=== PATIENT | female | born 1950 | race Caucasian/White ===

== ENCOUNTER 2024-04-03 06:30 | Inpatient (IN) | payer MEDICARE, MEDICAID ==
[2024-04-03] MEDS ORDERED: Ondansetron PF 4 MG/2 ML Vial ONE (06:38)
[2024-04-03 07:50] LABS: #Basophils 0.03 10x3/uL (0.0-0.2); #Eosinphils 0.04 10x3/uL (0.0-0.5); #Monocytes 0.49 10x3/uL (0.0-1.1); #Neutrophils 9.47 10x3/uL (1.5-8.4); %Basophils 0.3 % (0.0-2.0); %Eosinophils 0.3 % (0.0-6.0); %Lymphocytes 15.5 % (18.0-47.0); %Monocytes 4.1 % (0.0-10.0); %Neutrophils 79.3 % (40.0-75.0); Hematocrit 31.3 % (34.9-44.5); Hemoglobin 9.9 g/dL (12.0-15.5); Mean Corpuscular HGB CONC 31.6 g/dL (32.0-36.0); Mean Corpuscular Hemoglobin 27.6 pg (27.0-33.0); Mean Corpuscular Volume 87.2 fL (81.6-98.3); Mean Platelet Volume 9.7 fL (7.4-10.4); Platelet Count 308 10x3/uL (150-450); RBC Distribution Width 14.4 % (11.5-14.5); Red Blood Cell (RBC) Count 3.59 10x6/uL (3.90-5.03); White Blood Cell (WBC) Count 11.9 10x3/uL (3.5-10.5)
[2024-04-03 08:10] LABS: ALT (SGPT) 7 U/L (8-55); AST (SGOT) 14 U/L (5-34); Albumin 2.6 g/dL (3.4-4.8); Alkaline Phosphatase 59 U/L (40-110); Anion Gap 21 mmol/L (10-20); BUN (Urea Nitrogen) 40 mg/dL (9.8-20.1); Bilirubin, Total 0.5 mg/dL (0.2-1.2); Calc. Creatinine Clearance 0 mL/min (70-130); Calcium 8.7 mg/dL (7.8-10.44); Carbon Dioxide 18 mmol/L (23-31); Chloride 107 mmol/L (98-107); Estimated GFR 36; Globulin 3.7 g/dL (2.4-3.5); Glucose 142 mg/dL (83-110); Lipase 31 U/L (8-78); Potassium 4.5 mmol/L (3.5-5.1); Protein, Total 6.3 g/dL (5.8-8.1); Sodium 141 mmol/L (136-145)
[2024-04-03] MEDS ORDERED: Aspirin 325 MG TAB ONE (08:28)
[2024-04-03 08:39] LABS: PTT 23.4 sec (22.0-33.0); Prothrombin Time 10.3 sec (9.5-12.1)
[2024-04-03] MEDS ORDERED: Iopamidol 300 61% 100 ML VIAL FS ONE (09:02)
[2024-04-03 09:57] LABS: Troponin I 0.143 ng/mL (< 0.028)
[2024-04-03 10:08] LABS: Bilirubin Neg (Negative); Blood, Urine 250 (Negative); Clarity Mucous (Clear); Glucose, Urine (Dipstick) 50 mg/dL (Negative); Ketone, Urine Negative (Negative); Leukocyte 500 (Negative); Nitrite Negative (Negative); Protein, Urine (Dipstick) 100 mg/dl (Neg-Trace); Urobilinogen Normal mg/dL (Less than 2)
[2024-04-03] MEDS ORDERED: Morphine 4 MG/ML VIAL ONE (10:29)
[2024-04-03] MEDS ORDERED: cefTRIAXone (ROCEPHIN) 1 GM VIAL ONE (10:30)
[2024-04-03 10:42] LABS: Bacteria/HPF 1+ HPF (None Seen); CAUTI Indications for Culture Pelvic or flank pain; Squamous Epithelial 0-3 HPF (0-3); WBC/HPF Greater than 50 HPF (0-3)
[2024-04-03 10:43] LABS: Urine Culture Reflex Yes Yes
[2024-04-03] MEDS ORDERED: Senokot S 8.6-50 MG TAB PO PRN (10:53)
[2024-04-03] MEDS ORDERED: Acetaminophen 650 MG Suppository PR PRN (10:53)
[2024-04-03] MEDS ORDERED: Dextrose 50% Abboject 50 ML SYRINGE SLOW IVP PRN (10:53)
[2024-04-03] MEDS ORDERED: Insulin Lispro 100 UNIT/ML 10 ML VIAL SC PRN ×2 (10:53)
[2024-04-03] MEDS ORDERED: Dextrose 5% in Water 1,000 ML IV PRN (10:53)
[2024-04-03] MEDS ORDERED: Ondansetron PF 4 MG/2 ML Vial IVP PRN (10:53)
[2024-04-03] MEDS ORDERED: Glucagon 1 MG/ML KIT IM PRN (10:53)
[2024-04-03] MEDS ORDERED: Morphine 2 MG/ML VIAL SLOW IVP PRN (10:57)
[2024-04-03] MEDS ORDERED: Pantoprazole 40 MG VIAL ONE (11:22)
[2024-04-03 12:38] LABS: Magnesium 1.8 mg/dL (1.6-2.6)
[2024-04-03 12:42] LABS: Troponin I 0.167 ng/mL (< 0.028)
[2024-04-03 17:04] VITALS: BMI 20.9
[2024-04-03] MEDS: levETIRAcetam in NS 1,000 MG in Premix 1 BAG IVPB ONE (17:20)
[2024-04-03] MEDS: levETIRAcetam 500 MG (5 mL) VIAL SLOW IVP SCH (18:42)
[2024-04-03] MEDS: Sodium Chloride 0.45% 1,000 ML IV SCH (19:00)
[2024-04-03] MEDS ORDERED: Famotidine 20 MG TAB PO SCH (21:00)
[2024-04-04] MEDS: Mirtazapine 15 MG TAB PO SCH (01:30)
[2024-04-04 04:09] LABS: #Basophils 0.04 10x3/uL (0.0-0.2); #Eosinphils 0.17 10x3/uL (0.0-0.5); #Neutrophils 6.22 10x3/uL (1.5-8.4); %Basophils 0.4 % (0.0-2.0); %Eosinophils 1.7 % (0.0-6.0); %Lymphocytes 28.4 % (18.0-47.0); %Monocytes 5.1 % (0.0-10.0); %Neutrophils 64.1 % (40.0-75.0); Hematocrit 22.4 % (34.9-44.5); Hemoglobin 7.3 g/dL (12.0-15.5); Mean Corpuscular HGB CONC 32.6 g/dL (32.0-36.0); Mean Corpuscular Hemoglobin 28.6 pg (27.0-33.0); Mean Corpuscular Volume 87.8 fL (81.6-98.3); Platelet Count 261 10x3/uL (150-450); RBC Distribution Width 14.4 % (11.5-14.5); Red Blood Cell (RBC) Count 2.55 10x6/uL (3.90-5.03); White Blood Cell (WBC) Count 9.7 10x3/uL (3.5-10.5)
[2024-04-04 04:22] LABS: ALT (SGPT) Less than 7 U/L (8-55); AST (SGOT) 13 U/L (5-34); Alkaline Phosphatase 40 U/L (40-110); Anion Gap 15 mmol/L (10-20); BUN (Urea Nitrogen) 31 mg/dL (9.8-20.1); Bilirubin, Total 0.2 mg/dL (0.2-1.2); Calc. Creatinine Clearance 33 mL/min (70-130); Calcium 7.9 mg/dL (7.8-10.44); Carbon Dioxide 17 mmol/L (23-31); Chloride 109 mmol/L (98-107); Estimated GFR 44; Glucose 74 mg/dL (83-110); Potassium 3.9 mmol/L (3.5-5.1); Sodium 137 mmol/L (136-145)
[2024-04-04] MEDS: Acetaminophen 325 MG TAB PO PRN (09:36)
[2024-04-04] MEDS: levETIRAcetam 500 MG TAB PO SCH (09:36)
[2024-04-04] MEDS: Ondansetron ODT 4 MG TAB PO PRN (09:37)
[2024-04-04] MEDS ORDERED: cefTRIAXone\\ROCEPHIN 1 GM in Sodium Chloride 0.9% 100 ML IVPB SCH (11:00)
[2024-04-04] MEDS: Pantoprazole 40 MG VIAL IVP SCH (12:07)
[2024-04-04] MEDS: LevoFLOXacin 500 MG TAB PO SCH (12:17)
[2024-04-04] MEDS: HYDROcodone/Acetaminophen 5/325 mg Tablet PO PRN (12:17)
[2024-04-05] MEDS: LevoFLOXacin 250 MG TAB PO SCH (06:24)
[2024-04-05 15:58] LABS: #Basophils 0.06 10x3/uL (0.0-0.2); #Eosinphils 0.18 10x3/uL (0.0-0.5); #Neutrophils 5.97 10x3/uL (1.5-8.4); %Basophils 0.7 % (0.0-2.0); %Lymphocytes 26.7 % (18.0-47.0); %Monocytes 5.4 % (0.0-10.0); %Neutrophils 64.9 % (40.0-75.0); Hematocrit 24.7 % (34.9-44.5); Hemoglobin 8.2 g/dL (12.0-15.5); Mean Corpuscular HGB CONC 33.2 g/dL (32.0-36.0); Mean Corpuscular Hemoglobin 28.9 pg (27.0-33.0); Mean Platelet Volume 9.7 fL (7.4-10.4); Platelet Count 286 10x3/uL (150-450); RBC Distribution Width 14.6 % (11.5-14.5); Red Blood Cell (RBC) Count 2.84 10x6/uL (3.90-5.03); White Blood Cell (WBC) Count 9.2 10x3/uL (3.5-10.5)
[2024-04-05 16:06] LABS: Anion Gap 14 mmol/L (10-20); BUN (Urea Nitrogen) 23 mg/dL (9.8-20.1); Calc. Creatinine Clearance 32 mL/min (70-130); Calcium 8.5 mg/dL (7.8-10.44); Carbon Dioxide 20 mmol/L (23-31); Chloride 108 mmol/L (98-107); Estimated GFR 42; Glucose 65 mg/dL (83-110); Potassium 4.4 mmol/L (3.5-5.1); Sodium 138 mmol/L (136-145)
[2024-04-05 17:03] VITALS: BP 120/65; TEMP 98.4
[2024-04-06] MEDS ORDERED: Pantoprazole DR 40 MG TAB PO SCH (09:00)
== END 2024-04-05 17:57 | DRG 682 ==
LOC: CSHERS 06:30 → CSHERHOLD 11:07 → CSHTELE 17:15
PROVIDERS: ADMIT Family Medicine; ATTEND Family Medicine
DX: N17.9 Acute kidney failure, unspecified (principal); I21.A1 Myocardial infarction type 2; E87.20 Acidosis, unspecified; F03.918 Unspecified dementia, unspecified severity, with other behavioral disturbance; I12.9 Hypertensive chronic kidney disease with stage 1 through stage 4 chronic kidney disease, or unspecified chronic kidney disease; N18.30 Chronic kidney disease, stage 3 unspecified; E78.5 Hyperlipidemia, unspecified; F41.9 Anxiety disorder, unspecified; E11.22 Type 2 diabetes mellitus with diabetic chronic kidney disease; D63.1 Anemia in chronic kidney disease; F32.A Depression, unspecified; B96.20 Unspecified Escherichia coli [E. coli] as the cause of diseases classified elsewhere; E11.40 Type 2 diabetes mellitus with diabetic neuropathy, unspecified; Z91.148 Patient's other noncompliance with medication regimen for other reason; Z88.5 Allergy status to narcotic agent; Z79.899 Other long term (current) drug therapy; Z90.710 Acquired absence of both cervix and uterus; Z98.890 Other specified postprocedural states; Z87.891 Personal history of nicotine dependence
CPT/HCPCS: 36415; 71045; 74177; 76705; 80048; 80053; 81001; 83605; 83690; 83735; 84484; 85025; 85610; 85730; 87086; 93005; 94760; 94762; 96361; 96365; 96375; J0696; J1953; J2272; J2405; J2470; Q0162; Q9967